=== PATIENT | female | born 1995 | race Two or more races ===

== ENCOUNTER 2024-04-24 22:57 | Emergency (ER) | payer MEDICAID ==
[~2024-04-24] VITALS: Ht 149.9 cm; Wt 68.0 kg
[2024-04-25] MEDS ORDERED: KETOROLAC TROMETHAMINE INJ 30 MG/ML VIAL ONE (00:05)
[2024-04-25] MEDS ORDERED: ONDANSETRON HCL/PF 4 MG/2 ML VIAL ONE (00:05)
[2024-04-25] MEDS: IV NS 0.9% 1,000 ML BAG IV ONE (00:09)
[2024-04-25] MEDS: KETOROLAC TROMETHAMINE 15 MG/ML VIAL IV ONE (00:09)
[2024-04-25] MEDS: ONDANSETRON HCL/PF 4 MG/2 ML VIAL IVP ONE (00:09)
[2024-04-25 00:11] LABS: BASOPHILS # (AUTO) 0.1 K/uL (0.0-0.2); BASOPHILS % (AUTO) 0.4 % (0.0-2.0); EOSINOPHILS # (AUTO) 0.1 K/uL (0.0-0.7); EOSINOPHILS % (AUTO) 0.5 % (0.0-6.0); HEMATOCRIT 41 % (33-45); HEMOGLOBIN 13.6 g/dL (11.5-14.8); LYMPHOCYTES # (AUTO) 1.1 K/uL (0.8-4.8); LYMPHOCYTES % (AUTO) 6.7 % (20.0-44.0); MEAN CORPUSCULAR HEMOGLOBIN 29 PG (26.0-33.0); MEAN CORPUSCULAR HGB CONC 33 g/dl (31.0-36.0); MEAN CORPUSCULAR VOLUME 86 fL (82-100); MONOCYTES # (AUTO) 0.6 K/uL (0.1-1.30); MONOCYTES % (AUTO) 3.7 % (2.0-12.0); NEUTROPHILS # (AUTO) 15.1 K/uL (1.8-8.9); NEUTROPHILS % (AUTO) 88.7 % (43.0-81.0); PLATELET COUNT (AUTO) 271 K/uL (150-450); RED BLOOD CELL COUNT(AUTO) 4.72 MIL/uL (4.0-5.2); RED CELL DISTRIBUTION WIDTH 13.6 % (11.5-15.0); WHITE BLOOD COUNT (AUTO) 17.1 K/uL (4.3-11.0)
[2024-04-25 00:20] LABS: CREATININE 0.9 mg/dL (0.6-1.3); POTASSIUM 3.3 mmol/L (3.5-5.1)
[2024-04-25 00:26] LABS: ALBUMIN 4.1 g/dL (3.4-5.0); BILIRUBIN,DIRECT 0.1 mg/dL (0.0-0.2); BILIRUBIN,TOTAL 0.3 mg/dL (0.2-1.0); TOTAL PROTEIN, SERUM 7.9 g/dL (6.4-8.2)
[2024-04-25 00:33] LABS: APPEARANCE,URINE CLEAR (CLEAR); BILIRUBIN,URINE NEGATIVE (NEGATIVE); BLOOD, URINE NEGATIVE Ery/uL (NEGATIVE); COLOR,URINE YELLOW (YELLOW); KETONES,URINE 2+ mg/dL (NEGATIVE); LEUKOCYTE ESTERASE ,URINE NEGATIVE (NEGATIVE); NITRITE, URINE NEGATIVE (NEGATIVE); PROTEIN,URINE 1+ mg/dl (NEGATIVE); UGLUCOSE NEGATIVE (NEGATIVE); UROBILINOGEN,URINE 0.2 EU/dL (0.2)
[2024-04-25 00:46] LABS: PREGNANCY TEST URINE QUAL NEGATIVE (NEGATIVE)
[2024-04-25 00:54] LABS: INR 1.01 (0.91-1.10); PARTIAL THROMBOPLASTIN TIME 27.2 SEC (24.3-34.3); PROTHROMBIN TIME 10.7 SECS (9.2-11.1)
[2024-04-25 01:16] LABS: ADD URINE CULTURE NO; BACTERIA,URINE Rare /HPF (None Seen); RBC,URINE 0-2 /HPF (0-2); SQUAMOUS EPITHELIAL CELL,UR Moderate /HPF (None Seen); WBC,URINE 0-2 /HPF (0-3)
[2024-04-25 01:17] LABS: MUCUS,URINE Moderate /LPF (None Seen)
[2024-04-25] MEDS ORDERED: DOCU-141 PO (01:18)
[2024-04-25] MEDS ORDERED: POLY17PO4 PO (01:18)
[2024-04-25] MEDS ORDERED: PANT40TA2 PO (01:18)
[2024-04-25 01:30] VITALS: BP 135/83; TEMP 98.2; O2SAT 98
== END 2024-04-25 01:31 | disposition home or self-care (01) ==
LOC: ER 23:10
DX: K29.20 Alcoholic gastritis without bleeding (principal); K59.00 Constipation, unspecified; R07.81 Pleurodynia; R94.31 Abnormal electrocardiogram [ECG] [EKG]; Z79.899 Other long term (current) drug therapy; Z91.011 Allergy to milk products; Z91.013 Allergy to seafood
CPT/HCPCS: 99285; 74176; 71045; 93005; 84703; 81001; 36415; 96374; 96361; 96375; 85025; 80048; 83690; 80076; 85730; J1885; J2405; J7030